=== PATIENT | male | born 1945 | race Caucasian/White ===

== ENCOUNTER → 2020-06-25 02:26 | Outpatient (CLI) | payer MEDICARE, SELFPAY ==
[2020-06-25 19:11] LABS: SARS-CoV-2 RNA PCR Negative
== END ==
PROVIDERS: PCP Internal Medicine; Visit Provider Internal Medicine Gastroenterology
DX: Z01.812 Encounter for preprocedural laboratory examination (principal); Z20.822 Contact with and (suspected) exposure to COVID-19
CPT/HCPCS: C9803; U0003; U0005

== ENCOUNTER 2020-06-28 02:10 | Day surgery (SDC) | payer MEDICARE, SELFPAY ==
[2020-06-16 13:23] VITALS: BMI 36.0
[2020-06-28 09:10] VITALS: BP 137/78; PULSE 79; RESP 20; TEMP 36.7; O2SAT 97
[2020-06-28] MEDS: LACTATED RINGERS 1,000 ML 150 ML IV CONT (09:20)
--- NOTE | 2020-06-28 09:27 | WPDANESEPPF ---
Anes - Initial Pre Proc Eval Procedure: Operation Date: 06/28/20 10:30 Proposed Procedures p Screening Colonoscopy - Aris Milan MD Date/Time: 06/28/20 09:27 Surgeon: Aris Milan MD Pre Op Diagnosis: hx of colon polyps Patient Data Age: 74 Gender: M Height: 6 ft 2 in Weight: 123.4 kg Last Vital Signs Temp 36.7 C 06/28/20 09:10 Pulse 79 06/28/20 09:10 Resp 20 06/28/20 09:10 BP 137/78 06/28/20 09:10 Pulse Ox 97 06/28/20 09:10 Allergies Allergy/AdvReac Type Severity Reaction Status Date / Time wheat Allergy Intermediate Wheezing Verified 06/28/20 09:09 Home Medications Medication Instructions Recorded Confirmed Type aspirin 81 mg tablet,delayed 81 mg PO DAILY 04/08/19 06/16/20 History release clotrimazole-betamethasone 1 1 applic TOPICAL BID 04/08/19 06/16/20 History %-0.05 % topical cream omega-3 fatty acids 1,000 mg 1,000 mg PO DAILY 04/08/19 06/16/20 History capsule amlodipine 5 mg tablet 5 mg PO DAILY #90 tablet 05/20/20 06/16/20 Rx lisinopril 10 mg tablet 10 mg PO DAILY #90 tablet 05/20/20 06/16/20 Rx simvastatin 10 mg tablet 10 mg PO DAILY #90 tablet 05/20/20 06/16/20 Rx Patient hx anesthesia problems: none Family hx anesthesia problems: none PMFSH Past Medical History Medical History Hypertension Pure hypercholesterolemia Family History Family History Mother Carcinoma of colon, Onset Age: 63 Patient's mother is Father Family history of lung cancer Patient's father is Social History Social History Smoking status: Never smoker Second hand tobacco smoke exposure: Yes Alcohol intake: never Alcohol use details: HOLIDAY USE Substance use type: does not use Living arrangements: alone Spiritual care concerns: No Anes - Eval Final PreProcedure Day of Procedure 06/28/20 09:27 Patient weight: obese Heart: regular rate and rhythm Lungs: clear to auscultation Airway: Mallampati scale class II Neurological: alert and oriented Last oral intake: >/= 8 hours ASA classification: III Emergent: no Anesthetic plan: proceed Anesthesia type and monitoring: general GIVS and standard monitoring Informed Consent: The patient's anesthetic plan and its attendant risks and benefits were discussed with the patient/family/POA. Questions were solicited and answers provided to the satisfaction of the patient/family/POA.
--- NOTE | 2020-06-28 09:35 | PM.HPGS ---
History of Present Illness History of Present Illness Consent: Risks, benefits, and alternatives have been discussed and questions answered. Patient agrees to proceed with procedure. Chief complaint: hx of colon polyps Narrative: Reece Zhang is a 74 year old male here for colon cancer screening Review of Systems Review of Systems: All systems reviewed & are unremarkable except as noted in HPI and below PMFSH Past Medical History Medical History Hypertension Pure hypercholesterolemia Family History Family History Mother Carcinoma of colon, Onset Age: 63 Patient's mother is Father Family history of lung cancer Patient's father is Social History Social History Smoking status: Never smoker Second hand tobacco smoke exposure: Yes Alcohol intake: never Alcohol use details: HOLIDAY USE Substance use type: does not use Living arrangements: alone Spiritual care concerns: No Meds Home Medications and Allergies Home Medications Medication Instructions Recorded Confirmed Type aspirin 81 mg tablet,delayed 81 mg PO DAILY 04/08/19 06/16/20 History release clotrimazole-betamethasone 1 1 applic TOPICAL BID 04/08/19 06/16/20 History %-0.05 % topical cream omega-3 fatty acids 1,000 mg 1,000 mg PO DAILY 04/08/19 06/16/20 History capsule amlodipine 5 mg tablet 5 mg PO DAILY #90 tablet 05/20/20 06/16/20 Rx lisinopril 10 mg tablet 10 mg PO DAILY #90 tablet 05/20/20 06/16/20 Rx simvastatin 10 mg tablet 10 mg PO DAILY #90 tablet 05/20/20 06/16/20 Rx Allergies Allergy/AdvReac Type Severity Reaction Status Date / Time wheat Allergy Intermediate Wheezing Verified 06/28/20 09:09 Vital Signs Vital Signs - 24 hr 06/28/20 09:10 Temperature 36.7 C Pulse Rate 79 Respiratory Rate 20 Blood Pressure 137/78 Pulse Oximetry 97 Exam Resp: Auscultation: clear to auscultation bilaterally Cardio: Rate: regular rate Rhythm: regular rhythm GI: GI Palp: Yes Soft to palpation and No Tenderness to palpation present (GI) Assessment and Plan Assessment and plan (1) Colon cancer screening: Code(s): Z12.11 - Encounter for screening for malignant neoplasm of colon Status: Acute Assessment and Plan: Colonoscopy with possible biopsy or polypectomy or cautery or injection of substances.
[2020-06-28] MEDS: SIMETHICONE ORAL SUSPENSION 20 MG/0.3 ML 30 ML BOTTLE 0.6 ML IRRIGATION (10:24)
[2020-06-28 10:32] VITALS: BP 105/70; PULSE 69; RESP 22; O2SAT 91
[2020-06-28 10:42] VITALS: BP 112/77; PULSE 65; RESP 20; O2SAT 96
[2020-06-28 10:52] VITALS: BP 122/83; PULSE 66; RESP 24; O2SAT 96
== END 2020-06-28 11:07 | disposition home or self-care (01) ==
PROVIDERS: PCP Internal Medicine; Visit Provider Internal Medicine Gastroenterology
PROC: 0DJD8ZZ Inspection of Lower Intestinal Tract, Via Natural or Artificial Opening Endoscopic (ICD-10-PCS; CPT 45378; principal; 2020-06-28 10:30)
DX: Z12.11 Encounter for screening for malignant neoplasm of colon (principal); D12.8 Benign neoplasm of rectum; K64.8 Other hemorrhoids; K57.30 Diverticulosis of large intestine without perforation or abscess without bleeding; Z79.82 Long term (current) use of aspirin; I10 Essential (primary) hypertension; E78.00 Pure hypercholesterolemia, unspecified; E66.9 Obesity, unspecified; Z68.34 Body mass index [BMI] 34.0-34.9, adult
CPT/HCPCS: 45385; 88305; C9803; J2704; J7120; U0003; U0005

== ENCOUNTER 2023-11-12 12:53 | Emergency (ER) | payer MEDICARE, SELFPAY ==
--- NOTE | ~2023-11-12 | CT_ITS ---
EXAMINATION: CT pelvis wo con DATE: 11/12/2023 13:44 INDICATION: Pelvis injury. TECHNIQUE: Computed tomography (CT) of the pelvis was performed without intravenous contrast. Automat ed exposure control and iterative reconstruction technique were employed. The dose-length product was 981.06 mGy-cm. COMPARISON: None FINDINGS: There is a right-sided ventral hernia containing fat. There are no pathologically enlarged lymph nodes. There is no free intraperitoneal fluid. There are fractures of the bilateral superior an d inferior pubic rami. There is a fracture involving sacral body and left sacral ala. There is mild l umbar spondylosis. There is mild osteoarthritis of the hips. IMPRESSION: 1. Fractures involving the bilateral superior and inferior pubic rami and the sacrum. Reviewed, dictated and finalized at location A. IMPRESSION: 1. Fractures involving the bilateral superior and inferior pubic rami and the s acrum.
--- NOTE | ~2023-11-12 | XR_ITS ---
EXAMINATION: XR femur RT min 2V DATE: 11/12/2023 13:53 INDICATION: Right thigh pain. TECHNIQUE: 2 views of right femur on 4 radiographs were obtained. COMPARISON: None. FINDINGS: Alignment is normal. There are fractures of the right superior and inferior pubic rami. The re is mild tricompartmental osteoarthritis of right knee. There is mild right hip osteoarthritis. No knee joint effusion. IMPRESSION: 1. Fractures of the right superior and inferior pubic rami. 2. Polyarticular osteoarthritis. Reviewed, dictated and finalized at location A.
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
[2023-11-12 12:58] VITALS: BP 119/70; PULSE 79; RESP 16; TEMP 36.4; O2SAT 99
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
[2023-11-12 14:39] LABS: Basophils Absolute Auto 0.1 K/mm3 (0.0-0.1); Basophils Percent Auto 0.6 % (0.2-1.2); Eosinophils Absolute Auto 0.4 K/mm3 (0-0.3); Eosinophils Percent Auto 3.2 % (0-4.4); Hematocrit 39.9 % (42.0-52.0); Hemoglobin 13.1 g/dL (14.0-18.0); Immature Granulocyte Absolute 0.09 K/mm3 (0.00-0.031); Immature Granulocyte Percent A 0.8 % (0-0.5); Lymphocytes Percent Auto 7.1 % (18.3-44.2); Mean Corpuscular HGB Conc 32.8 g/dl (32-36); Mean Corpuscular Hemoglobin 32.6 pg (26-34); Mean Corpuscular Volume 99.3 fl (80-100); Mean Platelet Volume 8.7 fl (7.4-10.4); Monocytes Absolute Auto 0.7 K/mm3 (0.1-0.6); Neutrophils Absolute Auto 9.2 K/mm3 (1.3-6.7); Neutrophils Percent Auto 82.3 % (45.5-73.1); Platelet Count Result 217 k/mm3 (150-375); Red Blood Count 4.02 M/mm3 (4.6-6.20); Red Cell Distribution Width 12.8 % (11.5-14.5); White Blood Count 11.2 K/mm3 (4.5-10.0)
[2023-11-12] MEDS: SODIUM CHLORIDE 0.9% IV 1,000 ML 999 ML IV CONT ×2 (14:44)
[2023-11-12 14:51] VITALS: BP 97/77; PULSE 65; RESP 18; O2SAT 97
[2023-11-12 14:51] LABS: Alanine Aminotransferase 34 U/L (6-50); Albumin Level 4.3 g/dL (3.5-5.1); Alkaline Phosphatase 52 U/L (38-126); Anion Gap 9 mmol/L (4-12); Aspartate Amino Transferase 39 U/L (17-59); Bilirubin,Total 0.5 mg/dL (0.2-1.3); Blood Urea Nitrogen 19 mg/dL (9-20); Calcium 9.4 mg/dL (8.4-10.2); Carbon Dioxide 25 mmol/L (22-30); Chloride 106 mmol/L (98-107); Estimated CRCL calculation 51 ml/min; Estimated Glomerular Filt Rate 46; Glucose 145 mg/dL (65-110); Potassium 4.3 mmol/L (3.4-5.0); Sodium 140 mmol/L (137-145)
[2023-11-12 14:54] LABS: Prothrombin Time 13.6 Seconds (11.1-14.7)
[2023-11-12 14:55] LABS: Partial Thromboplastin Time 22.8 Seconds (22.3-36.8)
[2023-11-12 15:01] VITALS: BP 114/90; PULSE 68; RESP 18; O2SAT 96
[2023-11-12] MEDS: MORPHINE SULFATE (*CRX) 2 MG/ML INJ IV PUSH (15:04)
== END 2023-11-12 15:27 | disposition short-term general hospital (02) ==
PROVIDERS: Emergency Provider Emergency Medicine; PCP Nurse Practitioner
DX: S32.592A Other specified fracture of left pubis, initial encounter for closed fracture (principal); S32.591A Other specified fracture of right pubis, initial encounter for closed fracture; S32.10XA Unspecified fracture of sacrum, initial encounter for closed fracture; S77.11XA Crushing injury of right thigh, initial encounter; I10 Essential (primary) hypertension; E78.00 Pure hypercholesterolemia, unspecified; Z77.22 Contact with and (suspected) exposure to environmental tobacco smoke (acute) (chronic); M17.11 Unilateral primary osteoarthritis, right knee; W30.89XA Contact with other specified agricultural machinery, initial encounter
CPT/HCPCS: 36415; 71045; 72192; 73552; 80053; 85025; 85610; 85730; 96374; 99285; J2270; J7030